=== PATIENT | female | born 1990 | race Hispanic/Latino ===

== ENCOUNTER 2021-12-09 10:41 | Emergency (ER) | payer OTHER ==
[2021-12-09 11:47] LABS: #Eosinphils 0.1 10x3/uL (0.0-0.5); #Monocytes 0.3 10x3/uL (0.0-1.1); #Neutrophils 3.9 10x3/uL (1.5-8.4); %Basophils 0.4 % (0.0-2.0); %Eosinophils 1.6 % (0.0-6.0); %Lymphocytes 23.9 % (18.0-47.0); %Monocytes 4.9 % (0.0-10.0); Hemoglobin 11.5 g/dL (12.0-15.5); Mean Corpuscular HGB CONC 35.4 g/dL (32.0-36.0); Mean Corpuscular Hemoglobin 29.2 pg (27.0-33.0); Mean Corpuscular Volume 82.5 fl (81.6-98.3); Mean Platelet Volume 11.3 fl (7.4-10.4); Platelet Count 176 10x3/uL (150-450); RBC Distribution Width 14.1 % (11.5-14.5); Red Blood Cell (RBC) Count 3.94 10x6/uL (3.90-5.03); White Blood Cell (WBC) Count 5.7 10x3/uL (3.5-10.5)
== END 2021-12-09 15:56 | disposition home or self-care (01) ==
LOC: CSHERS 10:41
DX: O03.4 Incomplete spontaneous abortion without complication (principal); Z3A.15 15 weeks gestation of pregnancy
CPT/HCPCS: 36415; 76856; 85025; 86900; 86901

== ENCOUNTER 2021-12-28 13:56 | Observation (INO) | payer OTHER ==
[2021-12-28 14:58] LABS: #Monocytes 0.4 10x3/uL (0.0-1.1); #Neutrophils 6.5 10x3/uL (1.5-8.4); %Basophils 0.1 % (0.0-2.0); %Eosinophils 0.5 % (0.0-6.0); %Lymphocytes 16.6 % (18.0-47.0); %Monocytes 4.3 % (0.0-10.0); Hemoglobin 6.1 g/dL (12.0-15.5); Mean Corpuscular HGB CONC 34.3 g/dL (32.0-36.0); Mean Corpuscular Volume 81.7 fl (81.6-98.3); Mean Platelet Volume 10.5 fl (7.4-10.4); Platelet Count 257 10x3/uL (150-450); RBC Distribution Width 13.9 % (11.5-14.5); Red Blood Cell (RBC) Count 2.18 10x6/uL (3.90-5.03); White Blood Cell (WBC) Count 8.4 10x3/uL (3.5-10.5)
[2021-12-28 15:22] LABS: ALT (SGPT) 20 U/L (8-55); AST (SGOT) 19 U/L (5-34); Albumin 3.8 g/dL (3.5-5.0); Alkaline Phosphatase 60 U/L (40-110); Anion Gap 13 mmol/L (10-20); BUN (Urea Nitrogen) 9 mg/dL (7.0-18.7); Bilirubin, Total 0.2 mg/dL (0.2-1.2); Calc. Creatinine Clearance 0 mL/min (70-130); Calcium 8.7 mg/dL (7.8-10.44); Carbon Dioxide 21 mmol/L (22-29); Chloride 109 mmol/L (98-107); Estimated GFR 120; Globulin 2.4 g/dL (2.4-3.5); Glucose 110 mg/dL (70-105); Potassium 3.9 mmol/L (3.5-5.1); Protein, Total 6.2 g/dL (6.0-8.3); Sodium 139 mmol/L (136-145)
[2021-12-28] MEDS ORDERED: Zolpidem Tartrate 5 MG TAB PO PRN (16:31)
[2021-12-28] MEDS ORDERED: Acetaminophen 325 MG TAB PO PRN (16:31)
[2021-12-28] MEDS ORDERED: Ondansetron PF 4 MG/2 ML Vial IVP PRN (16:31)
[2021-12-28] MEDS ORDERED: Ondansetron ODT 4 MG TAB PO PRN (16:31)
[2021-12-28 17:01] LABS: Platelet Count 282 10x3/uL (150-450)
[2021-12-28 17:02] LABS: SARS-CoV-2 NAA Rapid Test Not Detected (NotDetected)
[2021-12-28 17:14] LABS: D-Dimer Test Less than 0.19 mg/L FEU (0.19-0.50); Fibrinogen 305 mg/dL (220-504); INR-International Normal Ratio 0.9; Prothrombin Time 10.3 sec (9.5-12.1)
[2021-12-28 17:40] VITALS: BMI 41.0
[2021-12-28] MEDS ORDERED: Prevnar 13-Val Conj/PF 0.5 ML SYRINGE IM ONE (18:15)
[2021-12-28] MEDS: Sodium Chloride 0.9% 1,000 ML IV SCH (21:00)
[2021-12-28] MEDS: Clindamycin/D5W 900 MG in Premix Bag 1 BAG IVPB SCH (21:30)
[2021-12-28] MEDS: Famotidine 20 MG TAB PO SCH (21:31)
[2021-12-28] MEDS: Doxycycline 100 MG CAP PO SCH (21:31)
[2021-12-29 05:40] LABS: #Eosinphils 0.1 10x3/uL (0.0-0.5); #Monocytes 0.5 10x3/uL (0.0-1.1); #Neutrophils 3.9 10x3/uL (1.5-8.4); %Basophils 0.3 % (0.0-2.0); %Eosinophils 1.4 % (0.0-6.0); %Lymphocytes 31.4 % (18.0-47.0); %Neutrophils 59.4 % (40.0-75.0); Hemoglobin 6.5 g/dL (12.0-15.5); Mean Corpuscular HGB CONC 33.5 g/dL (32.0-36.0); Mean Corpuscular Volume 83.6 fl (81.6-98.3); Mean Platelet Volume 10.8 fl (7.4-10.4); Platelet Count 237 10x3/uL (150-450); Red Blood Cell (RBC) Count 2.32 10x6/uL (3.90-5.03); White Blood Cell (WBC) Count 6.6 10x3/uL (3.5-10.5)
[2021-12-29] MEDS: Sodium Chloride 0.9% 1,000 ML IV SCH ×2 (06:02→10:31)
[2021-12-29] MEDS: Clindamycin/D5W 900 MG in Premix Bag 1 BAG IVPB SCH ×2 (06:20→13:53)
[2021-12-29] MEDS: Doxycycline 100 MG CAP PO SCH (08:01)
[2021-12-29] MEDS: Famotidine 20 MG TAB PO SCH (08:01)
[2021-12-29] MEDS ORDERED: PROPOFOL 20 ML ONE (08:53)
[2021-12-29] MEDS ORDERED: Midazolam HCl 2 mg/2 ml Vial ONE (08:53)
[2021-12-29] MEDS ORDERED: Fentanyl 100 MCG/2 ML VIAL ONE (08:53)
[2021-12-29] MEDS ORDERED: Dexamethasone 4 mg/ml Vial ONE (08:55)
[2021-12-29] MEDS ORDERED: Lidocaine 1% PF 5 ML VIAL ONE (08:55)
[2021-12-29] MEDS ORDERED: Ondansetron PF 4 MG/2 ML Vial ONE (08:55)
[2021-12-29] MEDS ORDERED: Bupivacaine PF 0.5% 30 ML VIAL ONE (09:31)
[2021-12-29] MEDS ORDERED: Methylergonovine 0.2 MG/ML VIAL ONE (09:31)
[2021-12-29] MEDS ORDERED: EPINEPHrine 1 MG/ML AMP ONE (09:32)
[2021-12-29] MEDS ORDERED: Oxytocin 10 UNITS/ML VIAL ONE ×2 (10:28→10:29)
[2021-12-29 15:09] LABS: Hemoglobin 8.1 g/dL (12.0-15.5); Mean Corpuscular HGB CONC 35.4 g/dL (32.0-36.0); Mean Corpuscular Hemoglobin 28.8 pg (27.0-33.0); Mean Corpuscular Volume 81.5 fl (81.6-98.3); Mean Platelet Volume 10.4 fl (7.4-10.4); Platelet Count 250 10x3/uL (150-450); RBC Distribution Width 13.5 % (11.5-14.5); Red Blood Cell (RBC) Count 2.81 10x6/uL (3.90-5.03); White Blood Cell (WBC) Count 8.4 10x3/uL (3.5-10.5)
[2021-12-29 16:13] VITALS: BP 109/60; TEMP 99.1
== END 2021-12-29 16:05 | disposition home or self-care (01) ==
LOC: CSHERS 13:56 → CSHPP 16:49
PROVIDERS: ADMIT Obstetrics & Gynecology; ATTEND Obstetrics & Gynecology
PROC: 0UDB7ZZ Extraction of Endometrium, Via Natural or Artificial Opening (ICD-10-PCS; principal; 2021-12-29)
DX: O02.1 Missed abortion (principal); O08.1 Delayed or excessive hemorrhage following ectopic and molar pregnancy; D50.0 Iron deficiency anemia secondary to blood loss (chronic); Z20.822 Contact with and (suspected) exposure to COVID-19; I10 Essential (primary) hypertension; Z79.899 Other long term (current) drug therapy
CPT/HCPCS: 36415; 36430; 76856; 80053; 85025; 85049; 85300; 85362; 85379; 85384; 85610; 85730; 86850; 86900; 86901; 88305; 96361; 96365; 96376; G0378; J0171; J1100; J2210; J2250; J2405; J2590; J2704; J3010; J3490; J7050; P9016; S0020; U0002

== ENCOUNTER 2024-05-09 11:04 | Day surgery (SDC) | payer OTHER ==
[2024-05-09 12:07] VITALS: BMI 44.6
== END 2024-05-09 14:15 | disposition home or self-care (01) ==
LOC: CSHLD/OP 11:04
PROVIDERS: ATTEND Obstetrics & Gynecology
DX: Z36.89 Encounter for other specified antenatal screening (principal); O36.8130 Decreased fetal movements, third trimester, not applicable or unspecified; O09.43 Supervision of pregnancy with grand multiparity, third trimester; O13.3 Gestational [pregnancy-induced] hypertension without significant proteinuria, third trimester; O24.414 Gestational diabetes mellitus in pregnancy, insulin controlled; Z3A.36 36 weeks gestation of pregnancy; Z79.84 Long term (current) use of oral hypoglycemic drugs; Z79.899 Other long term (current) drug therapy
CPT/HCPCS: 36416; 99282